=== PATIENT | female | born 1960 | race Caucasian/White ===

== ENCOUNTER → 2016-04-28 | Outpatient (CLI) | payer BC ==
[~2016-04-28] MED LIST: ACIDOPHILUS-PE1 EACH PO; ASPIRIN LO-DOSE81 MG PO; BREO ELLIPTA 11 EACH INH; CALCIUM500 MG PO; CENTRUM SILVER1 EAC1 PO; COLACE100 MG PO; DILAUDID 2MG(HYD2 MG PO; EFFER-K 10 MEQ10 MEQ PO; ENSURE PLUS237 ML PO; LOPRESSOR25 MG PO; LOSARTAN-HCTZ1 EAC2 PO; MIRALAX17 GM PO; NACL TABS1 GM PO; NEURONTIN300 MG PO; NORVASC5 MG PO; PROTONIX40 MG PO; QUESTRAN POWDE378 GM PO; TYLENOL EXTRA500 MG PO; VALIUM5 MG PO; XANAX0.5 MG PO; XARELTO10 MG PO
== END | disposition disaster alternative care site (69) ==
LOC: GPOC 13:20 → EDSTATUS 05-05
DX: Z01.812 Encounter for preprocedural laboratory examination (principal)

== ENCOUNTER 2016-05-05 07:00 | Inpatient (IN) | payer BC ==
[~2016-05-05] VITALS: Ht 170.2 cm; Wt 66.0 kg
--- NOTE | ~2016-05-05 | OR ---
PATIENT'S NAME: ROSA HUDSON [facility] AGE: 55 Y [address] ROOM: [place] [address] LOCATION: [facility] ADMIT DATE: 05/05/2016 OR/Procedure Report DISCHARGE DATE: FAMILY PHYSICIAN: Charlotte Perkins MD ATTENDING PHYSICIAN: JUANITA SURESH SURGEON: Juanita Suresh MD GLOBAL PROFESSIONAL: Omega Nam HIDE MEASURING MACHINE OPERATOR/[facility] and Juanita Schaffer. 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 PROCEDURE PERFORMED: Revision left total knee arthroplasty (revision of entire tibial and femoral component (including removal of well-fixed tibial and femoral components). ANESTHESIA: Spinal anesthesia plus adductor canal block plus periarticular local anesthesia (ropivacaine with epinephrine and Toradol). DRAINS: None. SPECIMEN: Synovial fluid for cell count, Gram stain, and culture. EXPLANT: DePuy Attune posterior stabilized femoral component and rotating platform tibial component. IMPLANTS: [place] Legacy LCCK size F left femoral component with cemented 15 mm x 100 mm femoral stem and 10 mm distal medial femoral augment. Size 5 tibial component with 10 x 75 mm fluted tibial stem and 41 mm x 34 mm x 25 mm trabecular metal tibial metaphyseal cone. A 17 mm LCCK tibial polyethylene insert with locking screw. COMPLICATIONS: None. ESTIMATED BLOOD LOSS: Less than 10 mL. INDICATIONS FOR PROCEDURE: Ms Hudson is a 55-year-old female, presenting with pain, instability, and activity-related swelling, status post undergoing primary left total knee arthroplasty with Dr. Garcia in [place], [place] PATIENT'S NAME: ROSA HUDSON [facility] AGE: 55 Y [address] ROOM: [place] [address] LOCATION: [facility] ADMIT DATE: 05/05/2016 OR/Procedure Report DISCHARGE DATE: FAMILY PHYSICIAN: Charlotte Perkins MD ATTENDING PHYSICIAN: JUANITA SURESH in December 2014. Risks, benefits, limitations, and alternatives to this procedure have been thoroughly reviewed, and informed consent has been granted. We have specifically reviewed risks and implications of infection, stiffness, neurovascular complications, deep venous thrombosis, pulmonary embolism, wear, loosening, stiffness, instability, and potential need for further revision. Informed consent has been granted. DESCRIPTION OF PROCEDURE: The patient was positioned supine after administration of regional anesthesia and prophylactic antibiotics. A well- padded pneumatic tourniquet was placed around her left proximal thigh, and her left lower extremity was prepped and draped with vigilant sterile technique. Examination under anesthesia demonstrated a large effusion. There were no active skin lesions or masses. There was no erythema. There was no abnormal warmth. There was a well-healed midline scar. Passive range of motion was from 10 degrees of hyperextension to 130 degrees of flexion. There was markedly increased anteroposterior translation at 90 degrees of flexion. There was at least 6 mm of medial lift-off to valgus stress in full extension and approximately 10 mm of medial lift-off to valgus stress in mid flexion. There was 5 mm of lateral lift-off to varus stress. The left lower extremity was elevated and exsanguinated with an Esmarch wrap, and the pneumatic tourniquet was inflated to 300 mmHg. The knee was approached through a longitudinal midline incision (incorporating the preexisting longitudinal midline scar). Non-absorbable suture material was noted in the medial retinaculum. A medial parapatellar arthrotomy was performed. Non-absorbable suture material was removed. There was abundant benign-appearing translucent synovial fluid. This was sent for cell count, Gram stain, and routine cultures. There was a moderate amount of fibrous tissue in the suprapatellar pouch. This was excised. There was no significant proliferative synovitis. All 3 components were noted to be well-fixed. The patellar component and tibial components were noted to be well aligned. Of note, this is a rotating platform implant. The femoral component was noted to be in neutral alignment (that is, perpendicular to the anatomic axis of the femoral shaft; therefore, varus relative to the mechanical axis of the femur). Direct visualization of the joint surfaces with varus and valgus stress confirmed that there was more laxity medially than laterally. The tibial tray was extracted and successively larger tibial polyethylene trials were inserted, but there was still at least 5 mm of medial lift-off (in full extension at mid flexion) after lateral stability had been achieved. Unfortunately, a TC3 RP implant is not manufactured, it is compatible with either this tibial tray or this femoral component. Therefore, the tibial and femoral components were removed using thin osteotomes to disrupt the cement prosthesis interfaces. There was significant osteopenia. The femoral canal was reamed by hand up to a size 16. The tibial canal was reamed by hand up to a size 12. Distal femoral and proximal tibial resections were performed. PATIENT'S NAME: ROSA HUDSON [facility] AGE: 55 Y [address] ROOM: [address] [address] LOCATION: [facility] ADMIT DATE: 05/05/2016 OR/Procedure Report DISCHARGE DATE: FAMILY PHYSICIAN: Charlotte Perkins MD ATTENDING PHYSICIAN: JUANITA SURESH Referenced off intramedullary guides. Due to the extent of osteopenia, a tibial metaphyseal augment was necessary. A small tibial canal cement restrictor was utilized, and a large femoral canal cement restrictor was utilized. Trial reductions were performed with the above-specified construct. The components were cemented in 2 stages. The tibial component was cemented using 2 batches of [place] Simplex cement containing premixed tobramycin. All excess cement was removed. The trabecular metal tibial metaphyseal augment had been press-fit prior to cementing, and excellent axial and rotational stability had been achieved. The femoral component was cemented in a second stage. It was noted (as we began to insert cement and after the cement had been applied to the femoral component) that irrigation of the femoral canal had washed away a substantial amount of cancellous bone. Thus, a separate single batch of [place] Simplex cement with premixed tobramycin was mixed in order to adequately fill the femoral canal. All excess cement was removed. When the cement had hardened, final reductions were performed with the standard tibial trials and CCK trials. A CCK implant was necessary in order to address the medial collateral ligament laxity. This was impacted into position, and the set screw was deployed using the torque-limiting wrench. Patella tracking was confirmed to be optimal. The entire joint space and entire incision were thoroughly irrigated with bacteriostatic pulsatile saline lavage several times throughout the case. The arthrotomy was closed with multiple simple interrupted #1 Vicryl sutures. Subcutaneous tissues were re-irrigated and subsequently reapproximated with simple deep interrupted 0 Vicryl. The skin was closed with superficial buried interrupted 2-0 Vicryl. The patient was noted to have quite thin dermis. The skin was closed with surgical micki. Final range of motion was from full extension to 130 degrees of flexion. There was no residual anteroposterior instability at 90 degrees of flexion, and there was no residual varus or valgus laxity. Patella tracking was confirmed to be optimal prior to wound closure. The dressing consisted of Xeroform gauze followed by sterile gauze, followed by ABD pads, and an Elton wrap. There were no complications. MD JOSEY CARABALLO/marcus PATIENT'S NAME: ROSA HUDSON [facility] AGE: 55 Y [address] ROOM: [place] [address] LOCATION: [facility] ADMIT DATE: 05/05/2016 OR/Procedure Report DISCHARGE DATE: FAMILY PHYSICIAN: Charlotte Perkins MD ATTENDING PHYSICIAN: JUANITA SURESH /[id number] d: 05/06/16 0150 t: 05/12/16 0753, OPERATIVE SUMMARY
--- NOTE | ~2016-05-05 | DS ---
PATIENT'S NAME: ROSA HUDSON [facility] AGE: 55 Y [address] 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 SECONDARY DIAGNOSES: 1. Hypertension. 2. Peptic ulcer disease. 3. Half-pack per day tobacco abuse. PROCEDURE PERFORMED: Revision left total knee arthroplasty (revision of entire tibial and femoral components including removal of well-fixed tibial and femoral components). HISTORY: The patient is a 55-year-old female, presenting with pain, instability, and activity-related swelling status post undergoing a primary left total knee arthroplasty with Dr. Garcia in [place], [place], in December of 2014. The patient has decided to proceed with revision total knee replacement after having been thoroughly counseled regarding the risks, benefits, limitations, and alternatives. Please refer to her outpatient clinic notes and her admission history and physical. HOSPITAL COURSE: The patient underwent the above specified procedure on 05/05/2016 without complications. Spinal anesthesia plus adductor canal block plus periarticular local anesthesia was used. She received 72 hours of perioperative prophylactic antibiotics. Antibiotics were discontinued on postop day #3. Wound cultures of the synovial fluid taken at the time of surgery were negative. She remained hemodynamically stable and neurovascularly intact throughout the entire hospital course. Her postoperative deep venous thrombosis prophylaxis consisted of Xarelto, early mobilization, and pneumatic compression devices. She received daily physical therapy for gait training, transfer training, and progressed well in physical therapy. On the date of discharge, the incision at the knee was healing well and showed no signs of infection. DISPOSITION: Home. DISCHARGE DIET: Regular. DISCHARGE ACTIVITY: She is to be weightbearing as tolerated on the left lower PATIENT'S NAME: ROSA HUDSON [facility] AGE: 55 Y [address] ROOM: [place] [address] LOCATION: [facility] ADMIT DATE: 05/05/2016 Discharge Summary DISCHARGE DATE: 05/07/2016 FAMILY PHYSICIAN: Charlotte Perkins MD ATTENDING PHYSICIAN: Juanita Suresh extremity. There is to be no left knee range of motion (for 1 week). She is to wear her left knee immobilizer at all times. She is to notify Dr. Suresh immediately if she experiences increased pain, fevers, chills, erythema, or drainage. DISCHARGE MEDICATIONS: 1. Xarelto 10 mg, take 1 tablet p.o. daily for DVT prevention. 2. Diazepam 5 mg, take 1/2 tablet to 1 tablet every 6 hours as needed for muscle spasms. 3. Dilaudid 2 mg, take 1 to 2 tablets p.o. every 4 hours as needed for pain. FOLLOWUP: Followup appointment is to be with Dr. Suresh in 1 week subsequent to dismissal from the hospital for her initial postoperative evaluation and x- rays at that time. DONATO WILKINSON FOR JUANITA SURESH MD TLB/modl /[id number] d: 05/19/16 0433 t: 05/19/16 0933, DISCHARGE SUMMARY
[~2016-05-05 07:00] MED LIST changes: -COLACE100 MG PO; -DILAUDID 2MG(HYD2 MG PO; -MIRALAX17 GM PO; -NEURONTIN300 MG PO; -TYLENOL EXTRA500 MG PO; -VALIUM5 MG PO; -XARELTO10 MG PO
[2016-05-06 05:26] LABS: HEMATOCRIT 34.6 % (33.0-46.0)
[2016-05-06 16:59] LABS: BLOOD UREA NITROGEN 9 mg/dL (6-24); CALCIUM 8.5 mg/dL (8.5-10.5); CHLORIDE 95 mMol/L (96-110); CO2 30 mMol/L (22-32); CREATININE 0.8 mg/dL (0.5-1.1); ESTIMATED GFR (MDRD EQUATION) > 60; SODIUM 132 mMol/L (135-145)
[2016-05-07] MEDS ORDERED: TYLENOL EXTRA500 MG PO ×2 (13:39→13:40)
[2016-05-07] MEDS ORDERED: COLACE100 MG PO (13:47)
[2016-05-07] MEDS ORDERED: NEURONTIN300 MG PO (13:48)
[2016-05-07] MEDS ORDERED: LOPRESSOR25 MG PO (13:49)
[2016-05-07] MEDS ORDERED: MIRALAX17 GM PO (13:53)
[2016-05-07] MEDS ORDERED: NACL TABS1 GM PO (13:56)
[2016-05-07] MEDS ORDERED: XARELTO10 MG PO (13:56)
[2016-05-07] MEDS ORDERED: VALIUM5 MG PO (14:00)
[2016-05-07] MEDS ORDERED: DILAUDID 2MG(HYD2 MG PO (14:02)
== END 2016-05-07 15:20 | disposition disaster alternative care site (69) | DRG 467 ==
LOC: G3N 08:01
PROVIDERS: Family Medicine; ADMIT Orthopaedic Surgery
PROC: 0SPU0JZ Removal of Synthetic Substitute from Left Knee Joint, Femoral Surface, Open Approach (ICD-10-PCS; principal; 2016-05-05)
PROC: 0SRU0J9 Replacement of Left Knee Joint, Femoral Surface with Synthetic Substitute, Cemented, Open Approach (ICD-10-PCS; 2016-05-05)
DX: T84.023A Instability of internal left knee prosthesis, initial encounter (principal); E87.1 Hypo-osmolality and hyponatremia; K27.9 Peptic ulcer, site unspecified, unspecified as acute or chronic, without hemorrhage or perforation; I10 Essential (primary) hypertension; Z79.82 Long term (current) use of aspirin; Z87.891 Personal history of nicotine dependence
CPT/HCPCS: C1713; C1776; J0690; J1100; J1170; J1885; J2001; J2250; J2795; J7120